=== PATIENT | female | born 1995 | race Caucasian/White ===

== ENCOUNTER 2017-05-14 09:29 | Emergency (ER) | payer OTHER ==
[2017-05-14 11:15] VITALS: BP 123/61
== END 2017-05-14 11:15 | disposition home or self-care (01) ==
LOC: ED 09:29
DX: J02.9 Acute pharyngitis, unspecified (principal); R53.1 Weakness

== ENCOUNTER 2018-08-07 17:27 | Emergency (ER) | payer OTHER ==
[~2018-08-07] VITALS: Ht 170.2 cm; Wt 102.5 kg
[2018-08-07 17:38] VITALS: Ht 170.2 cm; Wt 102.5 kg
[2018-08-07 21:40] VITALS: BP 100/69
== END 2018-08-07 21:40 | disposition home or self-care (01) ==
LOC: ED 17:27
DX: M94.0 Chondrocostal junction syndrome [Tietze] (principal); Z88.0 Allergy status to penicillin
CPT/HCPCS: Q0092

== ENCOUNTER 2019-06-15 14:32 | Emergency (ER) | payer SELFPAY ==
[~2019-06-15] VITALS: Ht 172.7 cm; Wt 109.3 kg
[2019-06-15 14:38] VITALS: Ht 172.7 cm; Wt 109.3 kg
[2019-06-15 16:57] LABS: BASOPHIL % 0.3 % (0-2); PLATELET COUNT 248 x10^3mcL (130-400); RED CELL DISTRIBUTION WIDTH 13.2 % (11.5-14.5)
[2019-06-15 17:10] LABS: CALCIUM 8.9 mg/dL (8.5-10.1); CARBON DIOXIDE 24.8 mmol/L (21-32); CHLORIDE SERUM 106 mmol/L (98-107); CREATININE SERUM 0.8 mg/dL (0.6-1.0); GFR1 > 60 mL/min; GLUCOSE SERUM 93 mg/dL (74-106); POTASSIUM SERUM 4.1 mmol/L (3.5-5.1); SODIUM SERUM 141 mmol/L (136-145)
[2019-06-15 17:14] LABS: ALBUMIN 3.7 g/dL (3.4-5.0); ALKALINE PHOSPHATASE 57 U/L (46-116); ALT/SGPT 22 U/L (14-59); AMYLASE 40 U/L (25-115); AST/SGOT 10 U/L (15-37); BILIRUBIN TOTAL 0.2 mg/dL (0.20-1.00); LIPASE 106 IU/L (73-393)
[2019-06-15 18:00] VITALS: BP 116/77
== END 2019-06-15 19:49 | disposition home or self-care (01) ==
LOC: ED 14:32
PROVIDERS: Specialist
DX: R10.30 Lower abdominal pain, unspecified (principal); Z98.890 Other specified postprocedural states; Z88.0 Allergy status to penicillin
CPT/HCPCS: 36415; J1885

== ENCOUNTER 2020-01-24 07:04 | Emergency (ER) | payer SELFPAY ==
[~2020-01-24] VITALS: Ht 172.7 cm; Wt 110.7 kg
[2020-01-24 07:10] VITALS: Ht 172.7 cm; Wt 110.7 kg
[2020-01-24 08:54] VITALS: BP 120/80
== END 2020-01-24 08:54 | disposition home or self-care (01) ==
LOC: ED 07:04
DX: S01.511A Laceration without foreign body of lip, initial encounter (principal); Z88.0 Allergy status to penicillin; Z98.890 Other specified postprocedural states; W18.39XA Other fall on same level, initial encounter; Y93.89 Activity, other specified; Y92.89 Other specified places as the place of occurrence of the external cause; Y99.8 Other external cause status
CPT/HCPCS: 90715; J2001

== ENCOUNTER 2020-11-02 12:03 | Emergency (ER) | payer OTHER, SELFPAY ==
[~2020-11-02] VITALS: Ht 172.7 cm; Wt 110.7 kg
[2020-11-02 12:04] VITALS: Ht 172.7 cm; Wt 110.7 kg
[2020-11-02 15:43] VITALS: BP 133/91
== END 2020-11-02 15:43 | disposition home or self-care (01) ==
LOC: ED 12:03
DX: U07.1 COVID-19 (principal); E66.9 Obesity, unspecified; Z68.37 Body mass index [BMI] 37.0-37.9, adult; Z88.0 Allergy status to penicillin
CPT/HCPCS: U0003